=== PATIENT | female | born 1985 | race Hispanic/Latino ===

== ENCOUNTER 2022-05-31 08:49 | Observation (INO) | payer OTHER ==
[2022-05-31] MEDS ORDERED: Promethazine HCl 25 MG/ML VIAL IM PRN (09:33)
[2022-05-31] MEDS ORDERED: Ondansetron PF 4 MG/2 ML Vial IVP PRN (09:34)
[2022-05-31] MEDS ORDERED: Acetaminophen 325 MG TAB PO PRN (09:34)
[2022-05-31] MEDS ORDERED: Meperidine HCl/PF 25 MG/ML VIAL IM PRN (09:53)
[2022-05-31] MEDS: Lactated Ringer's 1,000 ML IV SCH (10:28)
[2022-05-31 11:47] VITALS: BMI 26.6
[2022-05-31] MEDS ORDERED: FLU VACC QS2022-23(6MOS UP)/PF 60 MCG/0.5 ML SYRINGE IM ONE (12:30)
[2022-05-31] MEDS: HYDROcodone/Acetaminophen 5/325 mg Tablet PO PRN ×2 (12:48→21:48)
[2022-05-31 13:12] LABS: Chloride 111 mmol/L (98-107); Hemoglobin 9.5 g/dL (12.0-15.5); Potassium 3.9 mmol/L (3.5-5.1); Sodium 140 mmol/L (136-145)
[2022-05-31 13:13] LABS: Anion Gap 12 mmol/L (10-20); Carbon Dioxide 21 mmol/L (22-29)
[2022-05-31] MEDS ORDERED: HYDROcodone/Acetaminophen 5/325 mg Tablet PO SCH (15:00)
[2022-05-31] MEDS ORDERED: cefTRIAXone\\ROCEPHIN 1 GM in Sodium Chloride 0.9% 100 ML IVPB SCH (15:15)
[2022-05-31] MEDS ORDERED: Polyethylene Glycol 3350 17 GM Packet PO PRN (18:00)
[2022-05-31] MEDS ORDERED: Docusate 100 MG CAP PO PRN (18:00)
[2022-05-31 21:51] LABS: Hemoglobin 8.6 g/dL (12.0-15.5)
[2022-06-01] MEDS: HYDROcodone/Acetaminophen 5/325 mg Tablet PO PRN (04:55)
[2022-06-01 05:09] LABS: #Eosinphils 0.4 10x3/uL (0.0-0.5); #Monocytes 0.4 10x3/uL (0.0-1.1); #Neutrophils 4.9 10x3/uL (1.5-8.4); %Basophils 0.1 % (0.0-2.0); %Eosinophils 5.1 % (0.0-6.0); %Monocytes 5.7 % (0.0-10.0); %Neutrophils 62.8 % (40.0-75.0); Hemoglobin 8.8 g/dL (12.0-15.5); Mean Corpuscular HGB CONC 32.6 g/dL (32.0-36.0); Mean Corpuscular Hemoglobin 30.2 pg (27.0-33.0); Mean Corpuscular Volume 92.8 fl (81.6-98.3); Mean Platelet Volume 9.4 fl (7.4-10.4); Platelet Count 224 10x3/uL (150-450); RBC Distribution Width 15.2 % (11.5-14.5); Red Blood Cell (RBC) Count 2.91 10x6/uL (3.90-5.03); White Blood Cell (WBC) Count 7.7 10x3/uL (3.5-10.5)
[2022-06-01 05:27] LABS: Anion Gap 10 mmol/L (10-20); BUN (Urea Nitrogen) 9 mg/dL (7.0-18.7); Calc. Creatinine Clearance 132 mL/min (70-130); Calcium 8.2 mg/dL (7.8-10.44); Carbon Dioxide 25 mmol/L (22-29); Chloride 105 mmol/L (98-107); Estimated GFR 115; Glucose 88 mg/dL (70-105); Potassium 3.8 mmol/L (3.5-5.1); Sodium 136 mmol/L (136-145)
[2022-06-01] MEDS: Lactated Ringer's 1,000 ML IV SCH ×4 (06:11→22:17)
[2022-06-01] MEDS ORDERED: Ibuprofen 800 MG TAB PO PRN (07:37)
[2022-06-01] MEDS ORDERED: diphenhydrAMINE 50 MG/ML VIAL ONE (08:13)
[2022-06-01] MEDS ORDERED: diphenhydrAMINE 50 MG/ML VIAL IVP SCH (08:30)
[2022-06-01] MEDS ORDERED: Magnevist 469MG/ML 20 ML VIAL ONE (09:39)
[2022-06-01] MEDS: Acetaminophen/Codeine 30-300mg Tablet PO PRN ×2 (11:24→21:24)
[2022-06-01] MEDS ORDERED: Lorazepam 1 MG TAB PO SCH (13:00)
[2022-06-01] MEDS ORDERED: Lorazepam 2 MG/ML VIAL SLOW IVP SCH (13:00)
[2022-06-01] MEDS: cefTRIAXone\\ROCEPHIN 1 GM in Sodium Chloride 0.9% 100 ML IVPB SCH (14:48)
[2022-06-02] MEDS: Acetaminophen/Codeine 30-300mg Tablet PO PRN ×3 (05:48→21:04)
[2022-06-02] MEDS: Lactated Ringer's 1,000 ML IV SCH ×2 (05:56→21:08)
[2022-06-02] MEDS: cefTRIAXone\\ROCEPHIN 1 GM in Sodium Chloride 0.9% 100 ML IVPB SCH (14:56)
[2022-06-02] MEDS ORDERED: Lorazepam 0.5 MG TAB PO PRN (15:24)
[2022-06-02] MEDS ORDERED: Acetaminophen/Codeine 30-300mg Tablet PO SCH (16:00)
[2022-06-02 18:56] LABS: #Eosinphils 0.4 10x3/uL (0.0-0.5); #Monocytes 0.3 10x3/uL (0.0-1.1); #Neutrophils 3.8 10x3/uL (1.5-8.4); %Basophils 0.1 % (0.0-2.0); %Eosinophils 5.4 % (0.0-6.0); %Lymphocytes 32.9 % (18.0-47.0); %Monocytes 5.1 % (0.0-10.0); %Neutrophils 56.4 % (40.0-75.0); Mean Corpuscular HGB CONC 33.2 g/dL (32.0-36.0); Mean Corpuscular Hemoglobin 30.9 pg (27.0-33.0); Mean Corpuscular Volume 92.9 fl (81.6-98.3); Mean Platelet Volume 9.2 fl (7.4-10.4); Platelet Count 255 10x3/uL (150-450); RBC Distribution Width 15.1 % (11.5-14.5); Red Blood Cell (RBC) Count 3.24 10x6/uL (3.90-5.03); White Blood Cell (WBC) Count 6.7 10x3/uL (3.5-10.5)
[2022-06-02 19:18] LABS: ALT (SGPT) 17 U/L (8-55); AST (SGOT) 21 U/L (5-34); Albumin 3.7 g/dL (3.5-5.0); Alkaline Phosphatase 62 U/L (40-110); Anion Gap 13 mmol/L (10-20); BUN (Urea Nitrogen) 7 mg/dL (7.0-18.7); Bilirubin, Total 0.2 mg/dL (0.2-1.2); Calc. Creatinine Clearance 121 mL/min (70-130); Carbon Dioxide 24 mmol/L (22-29); Chloride 105 mmol/L (98-107); Estimated GFR 110; Globulin 2.8 g/dL (2.4-3.5); Glucose 117 mg/dL (70-105); Potassium 3.8 mmol/L (3.5-5.1); Protein, Total 6.5 g/dL (6.0-8.3); Sodium 138 mmol/L (136-145)
[2022-06-02] MEDS: Famotidine 20 MG TAB PO SCH (21:04)
[2022-06-03] MEDS: Acetaminophen/Codeine 30-300mg Tablet PO PRN ×2 (04:56→10:36)
[2022-06-03 08:49] VITALS: BP 93/52; TEMP 98.5
[2022-06-03] MEDS: Famotidine 20 MG TAB PO SCH (10:36)
== END 2022-06-03 14:02 ==
LOC: CSHPP 08:49 → INTOOBSV 08:49
PROVIDERS: ADMIT Student in an Organized Health Care Education/Training Program; ATTEND Family Medicine
DX: D64.9 Anemia, unspecified (principal); R10.2 Pelvic and perineal pain; I95.9 Hypotension, unspecified; K59.09 Other constipation; N39.0 Urinary tract infection, site not specified; C53.9 Malignant neoplasm of cervix uteri, unspecified; K21.9 Gastro-esophageal reflux disease without esophagitis; N93.9 Abnormal uterine and vaginal bleeding, unspecified; E11.9 Type 2 diabetes mellitus without complications; I10 Essential (primary) hypertension; Z87.891 Personal history of nicotine dependence; Z88.0 Allergy status to penicillin; Z88.8 Allergy status to other drugs, medicaments and biological substances; Z79.899 Other long term (current) drug therapy
CPT/HCPCS: 36415; 72197; 76770; 80048; 80051; 80053; 85014; 85018; 85025; 86850; 86900; 86901; 87086; 93005; 93010; A9579; J0696; J1200; J2060; J2175; J3490; J7120